=== PATIENT | female | born 1980 | race Two or more races ===

== ENCOUNTER 2019-07-02 08:38 | Outpatient (CLI) | payer OTHER | END 2019-07-02 08:56 | disposition home or self-care (01) | LOC: NUCLEAR 08:38 | DX: C73 Malignant neoplasm of thyroid gland (principal); E89.0 Postprocedural hypothyroidism | CPT/HCPCS: 79005; A9517 ==

== ENCOUNTER 2019-07-06 13:04 | Outpatient (CLI) | payer OTHER | END 2019-07-06 13:05 | disposition home or self-care (01) | LOC: NUCLEAR 13:04 | DX: C73 Malignant neoplasm of thyroid gland (principal); E89.0 Postprocedural hypothyroidism ==

== ENCOUNTER → 2020-10-28 13:56 | Outpatient (CLI) | payer OTHER | END | disposition home or self-care (01) | LOC: NUCLEAR 13:00 | PROVIDERS: ATTEND Internal Medicine Sports Medicine | DX: C73 Malignant neoplasm of thyroid gland (principal) | CPT/HCPCS: 78018; 78020; A9528 ==